=== PATIENT | female | born 1975 | race Caucasian/White ===

== ENCOUNTER 2018-06-02 13:03 | Emergency (ER) | payer SELFPAY ==
[2018-06-02 13:16] VITALS: BP 116/47; PULSE 77; TEMP 97.7; BMI 24.7
--- NOTE | 2018-06-02 14:02 | PDOC ---
History of Present Illness - General Chief Complaint: Rash Stated Complaint: RASH Time Seen by Provider: 06/02/18 13:23 - History of Present Illness Initial Comments: 06/02/18 13:59 43-year-old female without comorbidities presents for evaluation of painful rash on the left side of her back 5 days. She has night sweats and fever. Past History - Past Medical History Allergies/Adverse Reactions: Allergies Allergy/AdvReac Type Severity Reaction Status Date / Time No Known Drug Allergies Allergy Verified 06/02/18 13:15 Home Medications: Ambulatory Orders Multivitamins [Tab-A-Vit -] 1 tab PO DAILY 11/23/15 Hydrocodone/Acetaminophen [Lortab 5-325 mg Tablet] 1 each PO QID PRN #20 tablet MDD 4 pills 11/24/15 Acyclovir [Zovirax -] 200 mg PO 5XD #50 capsule 06/02/18 Anemia: No Asthma: No Cancer: No Cardiac Disorders: No CVA: No COPD: No CHF: No Dementia: No Diabetes: No GI Disorders: No Disorders: No HTN: No Hypercholesterolemia: No Liver Disease: No Seizures: No Thyroid Disease: No - Suicide/Smoking/Psychosocial Hx Smoking History: Never smoked Have you smoked in the past 12 months: No Information on smoking cessation initiated: No Hx Alcohol Use: No Drug/Substance Use Hx: No Substance Use Type: None Review of Systems - Review of Systems Constitutional: Yes: Fever, Malaise, Night Sweats Integumentary: Yes: Rash *Physical Exam - Vital Signs Last Vital Signs Temp Pulse Resp BP Pulse Ox 97.7 F 77 16 116/47 L 100 06/02/18 13:12 06/02/18 13:12 06/02/18 13:12 06/02/18 13:12 06/02/18 13:12 - Physical Exam Comments: 06/02/18 14:00 There is a vesicular rash on the left lower back around the areas of T10 and 11 wrapping anteriorly not crossing midline. There are no open vesicles. No indication of secondary infection. Medical Decision Making - Medical Decision Making 06/02/18 14:00 Acyclovir for shingles recommended Tylenol and Motrin for pain as directed. *DC/Admit/Observation/Transfer Diagnosis at time of Disposition: Shingles rash - Discharge Dispostion Disposition: HOME Condition at time of disposition: Stable Decision to Admit order: No - Prescriptions Prescriptions: Acyclovir [Zovirax -] 200 mg PO 5XD #50 capsule - Referrals Referrals: Fish Uriarte MD [Staff Physician] - - Patient Instructions Printed Discharge Instructions: Shingles, DI for Shingles Additional Instructions: Please take the area acyclovir as directed. Return to the emergency room for worsening symptoms. Tylenol Motrin as directed for pain and fever. Follow-up with internal medicine in one to 2 days for further evaluation and treatment options. - Post Discharge Activity
== END 2018-06-02 14:07 | disposition home or self-care (01) ==
LOC: JERFT 13:03
DX: B02.9 Zoster without complications (principal)
CPT/HCPCS: 99281-25